=== PATIENT | female | born 1985 | race Caucasian/White ===

== ENCOUNTER 2017-02-02 09:54 | Emergency (ER) | payer OTHER ==
--- NOTE | ~2017-02-02 | CT2 ---
[facility] A Service of [facility] RADIOLOGY TEXT RESULTS PATIENT: YOLANDA ESPARZA LOCATION: [facility] : 83 UNIT #: [id number] AGE: [address]: Holly Hunter APRN SEX: F ORDER DR: [id number] [facility] [address] [facility]. [place], [place] [address] [id number] MR#: [id number] Acc #: [id number] NAME: YOLANDA ESPARZA. : 1985 SEX: F STUDY DATE/TIME: 02/02/2017 12:23 UNIT: [facility] ROOM: STUDY DESCRIPTION: CT Abd and Pelv W Cont Attending Physician: Holly Hunter A.P.R.N. Ordering Physician: Holly Hunter A.P.R.N. Primary Care Physician: Boris Finn M.D. MEDICAL IMAGING REPORT This report is preliminary unless electronic signature is present EXAM CT abdomen and pelvis with IV contrast, 02/02/2017 HISTORY Low abdomen pain since yesterday. Vomiting. TECHNIQUE This CT exam was performed with one or more of the following radiation dose reduction techniques: automatic exposure control, adjustment of mA and/or kV according to patient size, and iterative reconstruction. FINDINGS CT abdomen and pelvis was performed with IV contrast. CT ABDOMEN: The lung bases are clear. Cholecystectomy. The liver, spleen, pancreas, kidneys, and adrenal glands are normal. Normal caliber abdominal aorta. No ascites. No inflammatory stranding. No bowel dilatation. Normal appendix. CT PELVIS: No pelvic mass or fluid collection. The uterus and adnexa are unremarkable. Incidental small follicular cysts in both ovaries. No bowel dilatation. IMPRESSION 1. No acute findings in the abdomen or pelvis. 2. Normal appendix. 3. Cholecystectomy. 4. No urinary obstruction or bowel obstruction. Dictated by... [facility] A Service of [facility] RADIOLOGY TEXT RESULTS PATIENT: YOLANDA ESPARZA LOCATION: [facility] : 83 UNIT #: [id number] AGE: [address]: Holly Hunter APRN SEX: F ORDER DR: Chad Anne M.D. THIS IS AN ELECTRONICALLY VERIFIED REPORT Chad Anne M.D. at 02/03/2017 2:59 PM CHU/willis TD: 02/03/2017 01:08 JOB #: [id number] MEDICAL IMAGING REPORT Page 1 of 1 COPY
[~2017-02-02 09:54] MED LIST: ADVAIR 250-501 EAC1 INH; ALBUTEROL17 GM INH; BENTYL20 MG DOB; CLINDAMYCIN HC300 MG PO; DILAUDID8 MG PO; FLEXERIL PO; FLEXERIL10 MG PO; IBUPROFEN PO; IBUPROFEN800 MG PO; METHADONE HCL10 MG PO; METHADOSE10 MG PO; MOTRIN400 MG PO; NO MEDICATIONS; OMNICEF300 MG PO; OXYCODONE HCL15 MG PO; OXYCODONE IR PO; OXYCODONE-APAP1 T11 PO; PEN-VEE K PO; PHENERGAN25 MG PO; REGLAN10 MG PO; ROBAXIN 750750 MG PO; XANAX0.5 M1 PO; XANAX1 MG PO; ZANAFLEX4 M1 PO; ZANTAC300 MG PO; ZITHROMAX PO; ZOFRAN PO; ZOFRAN8 MG; ZOFRAN8 MG PO
[2017-02-02 10:46] LABS: URINE SOURCE CATH
[2017-02-02 10:49] LABS: BASOPHIL% 0.4 % (0-2.5); HEMATOCRIT 45.5 % (35.0-45.0); HEMOGLOBIN 15.1 gm/dL (12.0-16.0); LYMPHOCYTE# 2.1 X10e3 (1.0-3.5); LYMPHOCYTE% 16.1 % (17.0-45.0); MEAN CELL VOLUME 90.4 FL (83-96); MEAN CORPUSCULAR HGB CONC 33.2 g/dL (30-36); MEAN PLATELET VOLUME 9.4 FL (6.5-11.5); MONOCYTE# 0.9 X10e3 (0-1.0); MONOCYTE% 6.7 % (3.0-12.0); NEUTROPHIL# 9.9 X10e3 (1.5-7.1); NEUTROPHIL% 76.8 % (40-75); PLATELET COUNT 331 X10e3 (140-420); RED BLOOD COUNT 5.03 X10e (3.90-5.30); RED CELL DISTRIBUTION WIDTH 12.6 % (11.0-15.5)
[2017-02-02 10:51] LABS: DIFF IND NO
[2017-02-02 10:53] LABS: URINE APPEARANCE CLOUDY; URINE BLOOD 1+ (NEG); URINE COLOR YELLOW; URINE GLUCOSE NORM (NORM); URINE KETONE 1+ (NEG); URINE LEUKOCYTE ESTERASE NEG (NEG); URINE NITRATE NEG (NEG); URINE PROTEIN 1+ (NEG); URINE SPECIFIC GRAVITY 1.025 (1.003-1.035); URINE UROBILINOGEN NORM (NORM)
[2017-02-02 11:04] LABS: URINE BILIRUBIN NEG (NEG)
[2017-02-02 11:06] LABS: CULTURE INDICATED? NO; U HYALINE CASTS AUWI 0-2 /[LPF]; URBCS1 AUWI NEG /[HPF] (0-2); URINE AMORPHOUS SEDIMENT AMORP URATES; URINE BACTERIA AUWI NEG (NEGATIVE); URINE MUCUS PRESENT; URINE SQUAMOUS EPITHELIAL CELL FEW /[HPF]; UWBCS1 AUWI NEG (0-5)
[2017-02-02 11:16] LABS: ALBUMIN SERUM 4.9 g/dL (3.5-5.0); BILIRUBIN, DIRECT 0.1 mg/dL (0.0-0.2); BILIRUBIN,INDIRECT 0.4 mg/dL (0.0-0.9); BILIRUBIN,TOTAL 0.5 mg/dL (0.2-2.0); CALCIUM SERUM 10.6 mg/dL (8.4-10.2); CREATININE SERUM 0.8 mg/dL (0.6-1.4); GLOM FILT RATE Estimated 97.6 mL/min (>60); POTASSIUM 3.4 mmol/L (3.5-5.1); PROTEIN TOTAL SERUM 8.2 g/dL (6.0-8.3)
[2017-02-04 20:42] LABS: CHLAMYDIA TRACH Not Detected (Not Detected); N GONOR Not Detected (Not Detected)
== END 2017-02-02 14:41 | disposition home or self-care (01) ==
LOC: CED 09:54
PROVIDERS: Nurse Practitioner
DX: R10.2 Pelvic and perineal pain (principal); R11.2 Nausea with vomiting, unspecified; R19.7 Diarrhea, unspecified; J45.909 Unspecified asthma, uncomplicated; F17.210 Nicotine dependence, cigarettes, uncomplicated; Z90.49 Acquired absence of other specified parts of digestive tract; Z88.5 Allergy status to narcotic agent
CPT/HCPCS: 36415; 74177; 80048; 80076; 81003; 82150; 83690; 84703; 85025; 87491; 87591; 87808; 87905; 94640; 96361; 96374; 96375; 99284; J1200; J1885; J2270; J2405; J2550; Q9967

== ENCOUNTER 2017-02-12 11:53 | Emergency (ER) | payer OTHER ==
[2017-02-12 10:49] LABS: BASOPHIL# 0.1 X10e3 (0-0.3); BASOPHIL% 0.7 % (0-2.5); EOSINOPHIL% 0.2 % (0.0-7.0); HEMATOCRIT 42.5 % (35.0-45.0); HEMOGLOBIN 14.3 gm/dL (12.0-16.0); LYMPHOCYTE# 1.8 X10e3 (1.0-3.5); LYMPHOCYTE% 22.4 % (17.0-45.0); MEAN CELL VOLUME 89.5 FL (83-96); MEAN CORPUSCULAR HEMOGLOBIN 30.1 PG (28-34); MEAN CORPUSCULAR HGB CONC 33.6 g/dL (30-36); MEAN PLATELET VOLUME 9.4 FL (6.5-11.5); MONOCYTE# 0.5 X10e3 (0-1.0); NEUTROPHIL# 5.7 X10e3 (1.5-7.1); NEUTROPHIL% 70.7 % (40-75); PLATELET COUNT 283 X10e3 (140-420); RED BLOOD COUNT 4.75 X10e (3.90-5.30); RED CELL DISTRIBUTION WIDTH 12.9 % (11.0-15.5)
[2017-02-12 10:59] LABS: DIFF IND NO
[2017-02-12 11:17] LABS: ALBUMIN SERUM 4.3 g/dL (3.5-5.0); BILIRUBIN, DIRECT 0.1 mg/dL (0.0-0.2); BILIRUBIN,INDIRECT 0.7 mg/dL (0.0-0.9); BILIRUBIN,TOTAL 0.8 mg/dL (0.2-2.0); BUN/CREATININE RATIO 11.42; CREATININE SERUM 0.7 mg/dL (0.6-1.4); GLOM FILT RATE Estimated 114.6 mL/min (>60); POTASSIUM 3.3 mmol/L (3.5-5.1); PROTEIN TOTAL SERUM 7.1 g/dL (6.0-8.3)
[2017-02-12 11:39] LABS: URINE SOURCE CLEAN CATCH
[2017-02-12 11:44] LABS: URINE APPEARANCE TURBID; URINE BILIRUBIN NEG (NEG); URINE BLOOD NEG (NEG); URINE COLOR DK YELLOW; URINE GLUCOSE NEG (NEG); URINE KETONE 2+ (NEG); URINE LEUKOCYTE ESTERASE NEG (NEG); URINE NITRATE NEG (NEG); URINE PROTEIN 1+ (NEG); URINE SPECIFIC GRAVITY 1.027 (1.003-1.035)
[2017-02-12 11:47] LABS: CULTURE INDICATED? YES; URINE BACTERIA AUWI 1+ (NEGATIVE); URINE SQUAMOUS EPITHELIAL CELL MOD /[HPF]
[2017-02-12 12:06] LABS: URINE AMORPHOUS SEDIMENT AMORP PHOSPHATES
[2017-02-12 12:08] LABS: URBCS1 AUWI 0-2 /[HPF] (0-2)
[2017-02-12 12:09] LABS: URINE MUCUS PRESENT
[2017-02-12 12:17] LABS: AMPHETAMINE NEG (NEG); BARBITURATES NEG (NEG); BENZODIAZEPINES NEG (NEG); COCAINE NEG (NEG); MARIJUANA NEG (NEG); OPIATES POS (NEG); TRICYCLIC ANTIDEPRESSANTS POS (NEG); U METHADONE NEG (NEG)
== END 2017-02-12 13:50 | disposition home or self-care (01) ==
LOC: CED 11:53
PROVIDERS: Emergency Medicine
DX: R10.84 Generalized abdominal pain (principal); R11.2 Nausea with vomiting, unspecified; F11.23 Opioid dependence with withdrawal; Z88.5 Allergy status to narcotic agent
CPT/HCPCS: 36415; 74177; 80048; 80076; 80307; 81003; 83690; 84703; 85025; 87086; 96361; 96372; 96374; 96375; 99284; J0500; J1200; J1885; J2405; Q9967